=== PATIENT | female | born 1965 | race Caucasian/White ===

== ENCOUNTER 2016-11-26 11:11 | Emergency (ER) | payer OTHER ==
[~2016-11-26] VITALS: Ht 170.2 cm; Wt 78.0 kg
[2016-11-26 11:14] VITALS: TEMP 36.6; Ht 170.2 cm; Wt 78.0 kg
--- NOTE | 2016-11-26 11:52 | EMERGENCY ROOM VISIT NOTE ---
History First contact with patient: 11:44 Chief Complaint: CONSTIPATION Stated Complaint: IMPACTED BOWEL Nursing Triage Summary: pt to the ED stating "i think i am impacted" pt has no complaints of pain last BM was 4 days ago History of Present Illness The patient is a 51 year old female who presents to the Emergency Room via private vehicle accompanied by male with complaints of "impacted bowel". The patient states that she is not had a bowel moment for 4 days. She notes some watery diarrhea but felt back into the rectal area and notes a very hard amount of large stool. She was able to digitally disimpact a small amount, but was unsuccessful for complete disimpaction. She states she has no pain, but does feel generalized uncomfortable sensation in the lower abdomen. She denies any urinary symptoms. She denies any pain medicine. Review of Systems A complete 10-point Review of Systems was discussed with the patient, with pertinent positives and negatives listed in the History of Present Illness. All remaining Review of Systems questions can be considered negative unless otherwise specified. Past Medical/Surgical History No pertinent. Family History No pertinent. Social History Smoking Status: Never Smoker Patient lives with family. Current/Historical Medications No Active Prescriptions or Reported Meds Physical Exam Vital Signs Date Time Temp Pulse Resp B/P (MAP) Pulse Ox O2 Delivery O2 Flow Rate FiO2 11/26/16 13:38 88 18 131/77 98 Room Air 11/26/16 13:07 66 16 126/73 100 Room Air 11/26/16 11:14 36.6 79 16 143/74 97 Physical Exam VITAL SIGNS - Vital signs and nursing notes were reviewed. Stable. GENERAL -51-year-old female appearing her stated age who is in no acute distress. Communicates well with provider and answers questions appropriately. SKIN - Without rashes. No petechial rashes. HEAD - NC/AT. EYES -Sclera anicteric. EARS - No deformities of external structures noted on gross examination bilaterally. NOSE - Midline and without cyanosis. LUNGS - Chest wall symmetric without accessory muscle use, intercostals retractions, or central cyanosis. Normal vesicular breath sounds CTA B/L. No wheezes, rales, or rhonchi appreciated. CARDIAC - RRR with S1/S2. No murmur, rubs, or gallops appreciated. ABDOMEN - Abdominal contour normal without pulsations or visible masses. BS normoactive all four quadrants. No tenderness, palpable masses, hepatosplenomegaly, or ascites noted. Medical Decision & Procedures ER Provider Diagnostic Interpretation: KUB CLINICAL HISTORY: 51 years-old Female presenting with No bm in 4 days,hard stool in rectum. TECHNIQUE: Single supine view of the abdomen was obtained. COMPARISON: None. FINDINGS: Moderate stool burden throughout the colon. Large stool burden in the rectum. No bowel obstruction. No gross pneumoperitoneum. Evaluation of the kidneys is limited secondary to the stool burden. Surgical clips project over the lower abdomen. Osseous structures normal. IMPRESSION: 1. Moderate stool burden in the colon with large burden in the rectum. These findings are compatible with constipation. Electronically signed by: Arie Delgado M.D. 11/26/2016 12:26 PM Dictated Date/Time: 11/26/2016 12:25 PM Medical Decision Patient was seen and evaluated as above. She presents to us today with no BM 4 days. She has subjectively noted she is fecally impacted. KUB was obtained, and reveals moderate stool burn in the colon with large burden in the rectum. Because she is tried to digitally disimpact her self, and notes a very large amount of hard stool, I will initiate an enema. She tolerated this very well. Successful passage of a large amount of stool. She then felt tremendously better. She was then felt stable for discharge. She was educated upon management of frequent constipation. She is to follow with her GI specialist. She is to return if worsening. She was educated upon management, educated upon worrisome symptoms in which to return, had questions answered prior distress, and was discharged home in good condition. In evaluation treatment this patient following differential diagnoses were entertained: Fecal impaction, hemorrhoids, small bowel obstruction, large bowel obstruction, among others. Impression Primary Impression: Fecal impaction Additional Impression: Constipation Departure Information Dispostion Home / Self-Care Condition GOOD Prescriptions No Active Prescriptions or Reported Meds Referrals No Doctor, Assigned (PCP) Patient Instructions My [facility] Additional Instructions You have been treated in the Emergency Department your fecal impaction. Laboratory results and imaging studies have ruled out any emergent causes for your abdominal pain which would warrant admission or surgery. We have successfully enabled you to have a bowel movement. We recommended increasing fiber in your diet. Please eat a healthy well-balanced diet full of leafy greens. Drink plenty of water and stay well hydrated. As with any trip to the Emergency Department, you should follow-up with your Primary Care Provider from today's visit. Return to the emergency department if your symptoms persist despite treatment plan outlined above or if the following symptoms occur: increased fevers, chills , worsening nausea/vomiting, blood in your stool or urine. Problem Qualifiers
--- NOTE | 2016-11-26 12:28 | DIAGNOSTIC IMAGING REPORT ---
KUB CLINICAL HISTORY: 51 years-old Female presenting with No bm in 4 days,hard stool in rectum. TECHNIQUE: Single supine view of the abdomen was obtained. COMPARISON: None. FINDINGS: Moderate stool burden throughout the colon. Large stool burden in the rectum. No bowel obstruction. No gross pneumoperitoneum. Evaluation of the kidneys is limited secondary to the stool burden. Surgical clips project over the lower abdomen. Osseous structures normal. IMPRESSION: 1. Moderate stool burden in the colon with large burden in the rectum. These findings are compatible with constipation. Electronically signed by: Arie Delgado M.D. 11/26/2016 12:26 PM Dictated Date/Time: 11/26/2016 12:25 PM
[2016-11-26 13:38] VITALS: BP 131/77; PULSE 88; O2SAT 98
== END 2016-11-26 14:10 | disposition home or self-care (01) ==
LOC: C.EDB 11:13 → C.EDA 14:10
DX: K59.00 Constipation, unspecified (principal)